=== PATIENT | female | born 1980 | race Two or more races ===

== ENCOUNTER → 2017-06-12 | Emergency (ER) | payer OTHER ==
[~2017-06-12] VITALS: Ht 165.1 cm; Wt 104.3 kg
[~2017-06-12] MED LIST: BENZTROPINE ME0.5 MG PO; CRYSELLE1 EACH PO; DIPHENHYDRAMINE50 M1 PO; ESCITALOPRAM OX20 MG PO; IBUPROFEN800 MG PO; KEFLEX500 MG PO; LEVOTHYROXINE300 MCG PO; LORAZEPAM0.5 MG PO; METFORMIN HCL500 MG PO; NAPROXEN500 MG PO; PROPRANOLOL HCL20 MG PO; VITAMIN C250 MG PO; ZYPREXA10 MG PO
== END ==
LOC: ED 00:18
DX: R11.2 Nausea with vomiting, unspecified (principal); R51 Headache; T44.3X5A Adverse effect of other parasympatholytics [anticholinergics and antimuscarinics] and spasmolytics, initial encounter; R73.03 Prediabetes; E03.9 Hypothyroidism, unspecified; F20.9 Schizophrenia, unspecified; Z88.0 Allergy status to penicillin; Z79.899 Other long term (current) drug therapy; Z79.84 Long term (current) use of oral hypoglycemic drugs
CPT/HCPCS: 80053; 81001; 85025; 99283